=== PATIENT | female | born 1990 | race African-American/Black ===

== ENCOUNTER → 2018-01-23 | Outpatient (CLI) | payer OTHER, SELFPAY | LOC: M WUC 14:54 | DX: R76.11 Nonspecific reaction to tuberculin skin test without active tuberculosis (principal) | CPT/HCPCS: 71046 ==

== ENCOUNTER 2018-07-17 19:02 | Emergency (ER) | payer OTHER, SELFPAY ==
[2018-07-17] MEDS: FLUORESCEIN OPHTH 1 MG STRIP OU (20:15)
[2018-07-17] MEDS: TETRACAINE 0.5% OPHTH SOLN 4ML OU (20:15)
[2018-07-17] MEDS: IBUPROFEN 600 MG TAB PO (20:45)
[2018-07-17] MEDS: CIPROFLOXACIN 0.3% OPHTH SOLN 2.5ML OS (20:45)
[2018-07-17] MEDS: NORCO 5/325MG TABLET (BULK FOR ED) PO (20:45)
== END 2018-07-17 21:29 | disposition home or self-care (01) ==
LOC: M ED 19:02
DX: S05.02XA Injury of conjunctiva and corneal abrasion without foreign body, left eye, initial encounter (principal); H05.222 Edema of left orbit; W22.8XXA Striking against or struck by other objects, initial encounter; Y92.89 Other specified places as the place of occurrence of the external cause
CPT/HCPCS: 99283